=== PATIENT | female | born 1980 | race African-American/Black ===

== ENCOUNTER 2019-02-06 18:22 | Emergency (ER) | payer OTHER ==
[~2019-02-06] VITALS: Ht 172.7 cm; Wt 113.4 kg
[2019-02-06 18:22] VITALS: BP 136/72
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
[2019-02-06 18:29] VITALS: BP 136/72
== END 2019-02-06 18:30 ==
LOC: EDBD 18:22 → EMR 18:29
DX: M54.9 Dorsalgia, unspecified (principal)
CPT/HCPCS: 99282

== ENCOUNTER 2020-01-22 22:38 | Emergency (ER) | payer MEDICAID, OTHER ==
[~2020-01-22] VITALS: Ht 175.3 cm; Wt 95.3 kg
[2020-01-22 22:43] VITALS: BP 130/80
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
[2020-01-22] MEDS: Cyclobenzaprine 10mg Tab ORAL ONE ×2 (23:15→23:19)
[2020-01-22 23:26] VITALS: BP 130/80
== END 2020-01-22 23:26 | disposition home or self-care (01) ==
LOC: EMR 22:55
DX: S39.92XS Unspecified injury of lower back, sequela (principal); V03.90XS Pedestrian on foot injured in collision with car, pick-up truck or van, unspecified whether traffic or nontraffic accident, sequela
CPT/HCPCS: 99281